=== PATIENT | female | born 1950 | race Caucasian/White ===

== ENCOUNTER 2020-02-25 06:39 | Day surgery (SDC) | payer MEDICARE, OTHER ==
--- OUTSIDE RECORDS SUMMARY | 2019-11-25 15:42 | XMSREPORT | Referral Summary ---
:1950 Author Organization [facility] Address [address] [place] [address] Care Team Providers Name Role Phone Noe Harp MD Primary Care Provider Noe Harp MD Attributed Provider Reason for Referral Transitions of Care (Routine) Status Reason Specialty Diagnoses / Referred By Referred To Procedures Contact Contact New Request Patient Diagnoses Screening for colon cancer Noe Harp Chi Preference D, MD [facility], [address] [place], [place] [address] [address] Phone: [facility] [phone] [place] [address] Fax: [facility] (Routine) Status Reason Specialty Diagnoses / Referred By Referred To Procedures Contact Contact New Request CARDIOLOGY Diagnoses Symptomatic varicose veins of both lower extremities Noe Harp, [facility] [address] [facility] [address] [place] [address] [place], [place] Phone: [phone] Phone: Scheduling Instructions This is an electronic referral. Reason for Visit Reason Comments vericose veins Encounter Details Date Type Department Care Team Description 11/20/[address] [facility] Noe Harp, Symptomatic varicose veins of both lower extremities (Primary Dx); Clinic Family Medicine Screening for colon cancer [address] [facility] [address] [place] [address] [place], [place] [phone] [id number] [phone] Allergies No Known Allergiesdocumented as of this encounter (statuses as of 11/20/2019) Medications Medication Sig Dispensed Refills Start Date End Date Status citalopram (CELEXA) 0 09/14/2019 Active 40 mg tablet oxybutynin Take 15 mg by mouth 0 09/03/2019 Active (DITROPAN-XL) 15 mg 1 time per day SR tablet (24 hr) omeprazole (PRILOSEC) Take 40 mg by mouth 0 09/05/2019 Active 40 mg capsule 1 time a day in the morning Ijfzaup-Mepuoxqmx-Zzs Take by mouth 0 Active c 167-83-8 MG TABS Multiple Take 1 tablet by 0 Active Vitamins-Minerals mouth 1 time per (MULTIVITAMIN day THERAPEUTIC WITH MINERALS) tablet cyanocobalamin Take 2,500 mcg by 0 Active (VITAMIN B-12) 1000 mouth 1 time per mcg tablet day bariatric advantage Take 29 mg by mouth 0 Active iron 29 mg chewable 1 time per day tablet omega-3 fatty acids Take 300 mg by 0 Active (FISH OIL) 1000 mg mouth 1 time per capsule day Magnesium Citrate Take by mouth 0 Active (CITRATE OF MAGNESIA) oral solution polyethylene glycol Take 3 teaspoonsful 225 g 0 10/20/2019 Active (MIRALAX) (17 g) by mouth 1 powderIndications: time per day Epigastric hernia documented as of this encounter (statuses as of 11/20/2019) Active Problems Problem Noted Date PTSD (post-traumatic stress disorder) 02/12/2018 Dysthymia 10/03/2015 Gastroesophageal reflux disease without esophagitis 10/03/2015 Overactive bladder 10/03/2015 Hypertension 07/31/2013 documented as of this encounter (statuses as of 11/20/2019) Immunizations Name Administration Dates Next Due FLU VACCINE HIGH DOSE 65YR+(Fluzone) 06/23/2019, 07/07/2018, 07/01/2017, 06/21/2016, 06/18/2012 Influenza Vaccine 6-35mo 06/19/2013, 06/15/2011 Influenza Vaccine,unspecified 06/23/2019, 07/07/2018, 07/01/2017, 06/21/2016, 06/08/2015, 06/18/2014, 06/18/2012, 06/15/2011, 06/29/2010 Pneumococcal Conj PCV13 02/10/2018, 10/29/2016 Pneumococcal Polysaccharide PPSV23 03/31/2014 TDAP 11/22/2008 Td 03/30/1999 Td(adult)preservative free 03/30/1999 Zoster Live(Zostavax) 12/13/2010 Zoster Recombinant (Shingrix) 12/01/2018, 07/07/2018 documented as of this encounter Social History Tobacco Use Types Packs/Day Years Used Date Never Smoker Smokeless Tobacco: Never Used Sex Assigned at Date Recorded Not on file Job Start Date Occupation Industry Not on file Not on file Not on file Travel History Travel Start Travel End No recent travel history available. documented as of this encounter Last Filed Vital Signs Vital Sign Reading Time Taken Comments Blood Pressure 130/86 11/20/2019 10:40 AM CDT Pulse 82 11/20/2019 10:40 AM CDT Temperature 35.8 C (96.5 F) 11/20/2019 10:40 AM CDT Respiratory Rate - - Oxygen Saturation 99% 11/20/2019 10:40 AM CDT Inhaled Oxygen Concentration - - Weight 83.9 kg (184 lb 14.4 oz) 11/20/2019 10:40 AM CDT Height - - Body Mass Index 30.77 10/20/2019 7:16 AM PERIANESTHESIA NURSE documented in this encounter Functional Status Functional Status Response Date of Assessment Is the person deaf or does he/she have serious difficulty No 10/20/2019 hearing? Is this person blind or does he/she have difficulty No 10/20/2019 seeing even when wearing glasses? Do you have difficulty with walking, balance, climbing No 10/20/2019 stairs, or had a fall in the last 3 months? documented as of this encounter Progress Notes Noe Harp MD - 11/20/2019 10:54 AM CDT Assessment / Plan Symptomatic varicose veins of both lower extremities - CLINIC REFERRAL VASCULAR ONE CHART Screening for colon cancer - CLINIC REFERRAL ENDOSCOPY NON ONE CHART Plan: After some discussion, we will refer to vascular department in [place] with Dr. Britt to discuss her symptomatic varicose vein treatment options. We'll schedule colonoscopy here at [facility] Follow-up when necessary Medications Outpatient Medications Prior to Visit Medication Sig Dispense Refill polyethylene glycol (MIRALAX) powder Take 3 teaspoonsful (17 g) by mouth 1 time per day 225 g 0 citalopram (CELEXA) 40 mg tablet oxybutynin (DITROPAN-XL) 15 mg SR tablet (24 hr) Take 15 mg by mouth 1 time per day omeprazole (PRILOSEC) 40 mg capsule Take 40 mg by mouth 1 time a day in the morning Knnpdtb-Jpgqxbwli-Dwkh 167-83-8 MG TABS Take by mouth Multiple Vitamins-Minerals (MULTIVITAMIN THERAPEUTIC WITH MINERALS) tablet Take 1 tablet by mouth 1 time per day cyanocobalamin (VITAMIN B-12) 1000 mcg tablet Take 2,500 mcg by mouth 1 time per day bariatric advantage iron 29 mg chewable tablet Take 29 mg by mouth 1 time per day omega-3 fatty acids (FISH OIL) 1000 mg capsule Take 300 mg by mouth 1 time per day Magnesium Citrate (CITRATE OF MAGNESIA) oral solution Take by mouth No facility-administered medications prior to visit. Allergies No Known Allergies Problem List Patient Active Problem List Diagnosis Dysthymia Gastroesophageal reflux disease without esophagitis Hypertension Overactive bladder PTSD (post-traumatic stress disorder) History This patient presents today for review of some increasing achiness in her bilateral lower extremities. She has a long-standing history of varicose veins. She states it runs in her family. She has increasing achiness with prolonged standing and with a lot of walking towards the end of theday. She has tried support stockings in the past and doesn't really like how they feel. We also reviewed her screening medical care and she is due for colonoscopy and is interested in getting that done. She declines DEXA scan but would look into the [facility] screening through her insurance company. Physical Exam BP 130/86 Pulse 82 Temp 96.5 F (35.8 C) (Temporal) Wt 83.9 kg (184 lb 14.4 oz) SpO2 99% BMI30.77 kg/m2|| Heartnormal sinus rhythm. No murmur appreciated Lungsclear throughout Extremitiessignificant bilateral varicose veins. No suggestion of redness or warmth or tenderness at this point. Trace edema only in ankles. No calf tenderness documented in this encounter Plan of Treatment Name Type Priority Associated Diagnoses Order Schedule CLINIC REFERRAL Referral Routine Symptomatic varicose Ordered: 11/20/2019 VASCULAR ONE CHART veins of both lower extremities CLINIC REFERRAL Referral Routine Screening for colon Ordered: 11/20/2019 ENDOSCOPY NON ONE CHART cancer documented as of this encounter Implants Implanted Type Area Edi Manager Device Shelf Model / Identifier Expiration Serial / Date Lot Mesh Ventralex St Cir Sm 1.7 N [id number] - [id number] General N/A: BARD DAVOL 04/05/2021 [id number] / Implanted: Qty: 1 on 10/20/2019 by Telly Doll MD at [facility] Implant [id number] / [id number] documented as of this encounter Visit Diagnoses Diagnosis Symptomatic varicose veins of both lower extremities - Primary Varicose veins of lower extremities with other complications Screening for colon cancer Special screening for malignant neoplasms, colon documented in this encounter"
[2020-02-25] MEDS ORDERED: Sodium Chloride 0.9% 1,000 ML IV SCH (07:15)
[2020-02-25] MEDS ORDERED: Midazolam 1 MG/ML 2 ML SDV ONE (07:19)
[2020-02-25] MEDS ORDERED: Propofol 200 MG/20 ML SDV ONE (07:19)
[2020-02-25] MEDS ORDERED: fentaNYL 100 MCG/2 ML SDV ONE (07:19)
--- NOTE | 2020-02-25 13:18 | OR ---
DATE OF PROCEDURE: 02/25/2020 SURGEON: Saurabh Roach MD PROCEDURE: Colonoscopy. FINDINGS: Diverticulosis, moderate, mostly concentrated in sigmoid colon without evidence of diverticulitis or bleeding. COMPLICATIONS: None. CREW FOREMAN: None. PREOPERATIVE DIAGNOSIS: Screening colonoscopy. POSTOPERATIVE DIAGNOSIS: Screening colonoscopy. RISKS: Risks, benefits, alternatives, and limitations including, but not limited to infection, bleeding, and perforation, along with false positives and false negatives were explained to the patient, who wished to proceed. PROCEDURE IN DETAIL: The patient was placed in left lateral decubitus position. Digital rectal exam was performed without abnormality. Scope was introduced and advanced atraumatically to the ileocecal valve. Scope was brought back through the ascending, transverse, descending colon, and retroflexed. The diverticulosis would be described as moderate, mostly in the sigmoid colon with a few tics noted in the ascending and transverse colon without evidence of diverticulitis or bleeding. No abnormalities on retroflexion. The prep was moderately acceptable. No old or new blood. No colitis. No other abnormalities. Saurabh Roach MD /[id number]
== END 2020-02-25 09:53 | disposition home or self-care (01) ==
LOC: JP.SDS 06:39
PROVIDERS: ATTEND Surgery
DX: Z12.11 Encounter for screening for malignant neoplasm of colon (principal); K57.30 Diverticulosis of large intestine without perforation or abscess without bleeding; I10 Essential (primary) hypertension; K21.9 Gastro-esophageal reflux disease without esophagitis; F43.10 Post-traumatic stress disorder, unspecified
CPT/HCPCS: G0121; J2250; J2704; J3010; J7030

== ENCOUNTER 2022-02-01 20:11 | Emergency (ER) | payer MEDICARE, OTHER ==
[2022-02-01] MEDS ORDERED: Ondansetron 4 MG/2 ML SDV IVPUSH ONE (20:20)
[2022-02-01] MEDS ORDERED: Sodium Chloride 0.9% 10 ML Syringe FLUSH PRN (20:20)
[2022-02-01] MEDS ORDERED: Sodium Chloride 0.9% 1,000 ML IV SCH (20:30)
== END 2022-02-01 21:54 | disposition home or self-care (01) ==
LOC: JP.ED 20:11
DX: K91.89 Other postprocedural complications and disorders of digestive system (principal); R11.2 Nausea with vomiting, unspecified; K21.9 Gastro-esophageal reflux disease without esophagitis; Z79.899 Other long term (current) drug therapy
CPT/HCPCS: 36415; 74019; 80053; 83605; 83690; 85025; 96361; 96374; 99282; 99284; J2405; J3490; J7030

== ENCOUNTER 2022-10-12 08:29 | Emergency (ER) | payer MEDICARE ==
[2022-10-12] MEDS ORDERED: Ibuprofen 400 MG Tab PO ONE (11:37)
[2022-10-12] MEDS ORDERED: Acetaminophen 500 MG Tab PO ONE (11:38)
== END 2022-10-12 12:14 | disposition home or self-care (01) ==
LOC: JP.ED 08:29
DX: M25.561 Pain in right knee (principal); M25.361 Other instability, right knee; K21.9 Gastro-esophageal reflux disease without esophagitis; E66.9 Obesity, unspecified; Z68.30 Body mass index [BMI] 30.0-30.9, adult; Z79.899 Other long term (current) drug therapy
CPT/HCPCS: 73562-26-RT; 73562-RT; 99282; 99283; A9270-GY

== ENCOUNTER 2022-11-13 18:28 | Emergency (ER) | payer MEDICARE, OTHER | END 2022-11-13 19:56 | disposition home or self-care (01) | LOC: JP.ED 18:28 | DX: M25.561 Pain in right knee (principal); K21.9 Gastro-esophageal reflux disease without esophagitis; E66.9 Obesity, unspecified; Z68.30 Body mass index [BMI] 30.0-30.9, adult; Z79.899 Other long term (current) drug therapy | CPT/HCPCS: 73562-26-RT; 73562-RT; 99283 ==

== ENCOUNTER 2023-01-14 06:20 | Day surgery (SDC) | payer MEDICARE, OTHER ==
[2023-01-14 06:42] LABS: HEMOGLOBIN 13.6 g/dL (11.2-15.5); MEAN CORPUSCULAR HEMOGLOBIN 29.5 pg (31.6-35.5); MEAN CORPUSCULAR HGB CONC 32.4 g/dL (31.6-35.5); MEAN CORPUSCULAR VOLUME 91.1 fL (81.4-99.0); RED BLOOD CELL COUNT 4.61 M/uL (3.77-5.24); WHITE BLOOD CELL COUNT,WBC 7.4 K/uL (3.2-11.0)
[2023-01-14] MEDS ORDERED: Nozin Nasal Sanitizer NASBOTH ONE (07:00)
[2023-01-14] MEDS ORDERED: Lactated Ringers 1,000 ML IV SCH (07:00)
[2023-01-14 07:03] LABS: A/G RATIO 0.9 (1.2-2.2); ALANINE AMINOTRANSFERASE,ALT 25 U/L (12-78); ALBUMIN 3.3 g/dL (3.4-5.0); ALKALINE PHOSPHATASE 88 U/L (46-116); ASPARTATE AMNIOTRANSFERASE,AST 26 U/L (15-37); BILIRUBIN TOTAL 0.5 mg/dL (0.2-1.0); BLOOD UREA NITROGEN,BUN 18 mg/dL (7-18); CALCIUM 8.9 mg/dL (8.5-10.1); CARBON DIOXIDE,CO2 28 mmol/L (21-32); CHLORIDE,CL 103 mmol/L (100-108); CREATININE 0.9 mg/dL (0.6-1.0); EST CRCL DRUG DOSING (CG) 49.35 mL/min; ESTIMATED GFR 67 mL/min (>60); GLUCOSE RANDOM 99 mg/dL (74-106); PROTEIN TOTAL,TP 7.2 g/dL (6.4-8.2); SODIUM,NA 138 mmol/L (140-148)
[2023-01-14] MEDS ORDERED: Bupivacaine 0.5% 50 ML MDV ONE (07:03)
[2023-01-14] MEDS ORDERED: Clindamycin Phosphate in D5W 900 MG in Premix Bag 1 BAG IV ONE ×2 (08:00)
[2023-01-14] MEDS ORDERED: fentaNYL 250 MCG/5 ML SDV ONE (08:02)
[2023-01-14] MEDS ORDERED: Glycopyrrolate 0.2 MG/ML 5 ML MDV ONE (08:03)
[2023-01-14] MEDS ORDERED: Dexamethasone 4 MG/ML SDV ONE (08:03)
[2023-01-14] MEDS ORDERED: Rocuronium 50 MG/5 ML Vial ONE (08:03)
[2023-01-14] MEDS ORDERED: Propofol 200 MG/20 ML SDV ONE (08:03)
[2023-01-14] MEDS ORDERED: Neostigmine Methylsulfate 1 MG/ML 5 ML Syringe ONE (08:03)
[2023-01-14] MEDS ORDERED: Succinylcholine 200 MG/10 ML MDV ONE (08:03)
[2023-01-14] MEDS ORDERED: Ondansetron 4 MG/2 ML SDV ONE (08:03)
[2023-01-14] MEDS ORDERED: ePHEDrine 50 MG/ML SDV ONE (08:34)
[2023-01-14] MEDS ORDERED: Ketorolac 30 MG/ML SDV ONE (08:43)
[2023-01-14] MEDS ORDERED: Acetaminophen/HYDROcodone 325-5 MG Tab PO PRN (09:55)
== END 2023-01-14 10:35 | disposition home or self-care (01) ==
LOC: JP.SDS 06:20
PROVIDERS: ATTEND Specialist
DX: S83.271A Complex tear of lateral meniscus, current injury, right knee, initial encounter (principal); M17.11 Unilateral primary osteoarthritis, right knee; M24.10 Other articular cartilage disorders, unspecified site; M22.41 Chondromalacia patellae, right knee; K21.9 Gastro-esophageal reflux disease without esophagitis; I10 Essential (primary) hypertension; F32.A Depression, unspecified; F43.10 Post-traumatic stress disorder, unspecified; E66.9 Obesity, unspecified; Z88.1 Allergy status to other antibiotic agents; Z68.30 Body mass index [BMI] 30.0-30.9, adult
CPT/HCPCS: 29881; 36415; 80053; 85027; 93005; A9270; J0330; J1100; J1885; J2405; J2704; J2710; J3010; J3490; J7120

== ENCOUNTER 2023-04-28 17:24 | Emergency (ER) | payer MEDICARE, OTHER ==
[2023-04-28] MEDS ORDERED: Sodium Chloride 0.9% 10 ML Syringe FLUSH PRN (18:01)
[2023-04-28] MEDS ORDERED: Sodium Chloride 0.9% 1,000 ML IV ONE (18:02)
[2023-04-28] MEDS ORDERED: Cyclobenzaprine 10 MG Tab PO ONE (18:06)
[2023-04-28 18:09] LABS: APPEARANCE,URINE CLEAR (CLEAR); BILIRUBIN,URINE NEGATIVE (NEGATIVE); COLOR,URINE YELLOW (YELLOW); GLUCOSE,URINE NEGATIVE (NEGATIVE); KETONES,URINE NEGATIVE (NEGATIVE); LEUKOCYTE ESTERASE,URINE NEGATIVE (NEGATIVE); NITRITE,URINE NEGATIVE (NEGATIVE); OCCULT BLOOD,URINE TRACE-INTACT (NEGATIVE); PH,URINE 5.5 (5.0-8.0); PROTEIN,URINE NEGATIVE (NEGATIVE); UROBILINOGEN,URINE 0.2 EU/dL (0.2-1.0)
[2023-04-28 18:15] LABS: BASOPHILS ABSOLUTE AUTO 0.05 K/uL (0.00-0.10); BASOPHILS PERCENT AUTO 0.6 % (0.1-1.3); EOSINOPHILS ABSOLUTE AUTO 0.33 K/uL (0.00-0.40); EOSINOPHILS PERCENT AUTO 3.9 % (0.0-5.4); HEMATOCRIT 30.8 % (34.3-46.0); HEMOGLOBIN 10.2 g/dL (11.2-15.5); IMMATURE GRAN ABSOLUTE AUTO 0.05 K/uL (0.00-0.23); IMMATURE GRAN PERCENT AUTO 0.6 % (0.0-0.7); LYMPHOCYTES ABSOLUTE AUTO 2.08 K/uL (0.8-3.3); LYMPHOCYTES PERCENT AUTO 24.8 % (11.4-47.7); MEAN CORPUSCULAR HEMOGLOBIN 30.1 pg (31.6-35.5); MEAN CORPUSCULAR HGB CONC 33.1 g/dL (31.6-35.5); MEAN CORPUSCULAR VOLUME 90.9 fL (81.4-99.0); MONOCYTES ABSOLUTE AUTO 0.77 K/uL (0.20-0.90); MONOCYTES PERCENT AUTO 9.2 % (3.3-12.6); NEUTROPHILS ABSOLUTE AUTO 5.11 K/uL (1.0-7.6); NEUTROPHILS PERCENT AUTO 60.9 % (40.0-78.1); PLATELET COUNT,PLT 279 K/uL (130-375); RED BLOOD CELL COUNT 3.39 M/uL (3.77-5.24); WHITE BLOOD CELL COUNT,WBC 8.4 K/uL (3.2-11.0)
[2023-04-28 18:15] LABS: AMORPHOUS SEDIMENT,URINE NOT SEEN; BACTERIA,URINE RARE; EPITHELIAL CELLS,URINE NOT SEEN; MUCUS,URINE NOT SEEN; RBC,URINE 0-5 (0-5); WBC,URINE 0-5 (0-5)
[2023-04-28 18:29] LABS: CALCIUM 8.9 mg/dL (8.5-10.1); CREATININE 0.8 mg/dL (0.6-1.0); EST CRCL DRUG DOSING (CG) 55.52 mL/min; POTASSIUM,K 4.4 mmol/L (3.6-5.2)
[2023-04-28 18:30] LABS: ANION GAP 14.4 mmol/L (5.0-14.0)
[2023-04-28] MEDS ORDERED: Ketorolac 30 MG/ML SDV IVPUSH ONE (18:45)
[2023-04-28] MEDS ORDERED: oxyCODONE 5 MG Tab PO ONE (19:14)
== END 2023-04-28 19:45 | disposition home or self-care (01) ==
LOC: JP.ED 17:24
DX: M62.838 Other muscle spasm (principal); I10 Essential (primary) hypertension; E66.9 Obesity, unspecified; K21.9 Gastro-esophageal reflux disease without esophagitis; Z79.899 Other long term (current) drug therapy; Z88.1 Allergy status to other antibiotic agents; Z68.29 Body mass index [BMI] 29.0-29.9, adult
CPT/HCPCS: 36415; 80048; 81001; 83735; 85025; 96361; 96374; 99284; A9270; J1885; J7030

== ENCOUNTER 2023-08-06 09:17 | Emergency (ER) | payer MEDICARE, OTHER ==
[2023-08-06 10:16] LABS: BASOPHILS ABSOLUTE AUTO 0.04 K/uL (0.00-0.10); BASOPHILS PERCENT AUTO 0.7 % (0.1-1.3); EOSINOPHILS ABSOLUTE AUTO 0.12 K/uL (0.00-0.40); EOSINOPHILS PERCENT AUTO 2.2 % (0.0-5.4); HEMATOCRIT 36.7 % (34.3-46.0); HEMOGLOBIN 11.9 g/dL (11.2-15.5); IMMATURE GRAN PERCENT AUTO 0.2 % (0.0-0.7); LYMPHOCYTES PERCENT AUTO 28.9 % (11.4-47.7); MEAN CORPUSCULAR HEMOGLOBIN 29.5 pg (31.6-35.5); MEAN CORPUSCULAR HGB CONC 32.4 g/dL (31.6-35.5); MEAN CORPUSCULAR VOLUME 90.8 fL (81.4-99.0); MONOCYTES ABSOLUTE AUTO 0.41 K/uL (0.20-0.90); MONOCYTES PERCENT AUTO 7.4 % (3.3-12.6); NEUTROPHILS ABSOLUTE AUTO 3.35 K/uL (1.0-7.6); NEUTROPHILS PERCENT AUTO 60.6 % (40.0-78.1); PLATELET COUNT,PLT 256 K/uL (130-375); RED BLOOD CELL COUNT 4.04 M/uL (3.77-5.24); WHITE BLOOD CELL COUNT,WBC 5.5 K/uL (3.2-11.0)
[2023-08-06 10:18] LABS: IMMATURE GRAN ABSOLUTE AUTO 0.01 K/uL (0.00-0.23)
[2023-08-06 10:36] LABS: A/G RATIO 0.9 (1.2-2.2); ALANINE AMINOTRANSFERASE,ALT 13 U/L (12-78); ALKALINE PHOSPHATASE 81 U/L (46-116); ASPARTATE AMNIOTRANSFERASE,AST 18 U/L (15-37); BILIRUBIN TOTAL 0.3 mg/dL (0.2-1.0); BLOOD UREA NITROGEN,BUN 17 mg/dL (7-18); CALCIUM 8.6 mg/dL (8.5-10.1); CARBON DIOXIDE,CO2 29 mmol/L (21-32); CHLORIDE,CL 102 mmol/L (100-108); CREATININE 0.9 mg/dL (0.6-1.0); EST CRCL DRUG DOSING (CG) 47.36 mL/min; ESTIMATED GFR 67 mL/min (>60); GLUCOSE RANDOM 88 mg/dL (74-106); POTASSIUM,K 5.1 mmol/L (3.6-5.2); PROTEIN TOTAL,TP 6.3 g/dL (6.4-8.2); SODIUM,NA 138 mmol/L (140-148)
[2023-08-06 10:47] LABS: ANION GAP 12.1 mmol/L (5.0-14.0)
[2023-08-06 11:06] LABS: SEDIMENTATION RATE MANUAL 24 mm/hr (0-25)
== END 2023-08-06 12:21 | disposition home or self-care (01) ==
LOC: JP.ED 09:17
DX: M17.12 Unilateral primary osteoarthritis, left knee (principal); I10 Essential (primary) hypertension; K21.9 Gastro-esophageal reflux disease without esophagitis; E03.9 Hypothyroidism, unspecified; E66.9 Obesity, unspecified; Z79.899 Other long term (current) drug therapy; Z88.1 Allergy status to other antibiotic agents; Z68.32 Body mass index [BMI] 32.0-32.9, adult
CPT/HCPCS: 36415; 80053; 83605; 84145; 85025; 85379; 85651; 93970; 93970-26; 99284

== ENCOUNTER 2024-01-30 05:50 | Day surgery (SDC) | payer MEDICARE, OTHER ==
[2024-01-30] MEDS: Sodium Chloride 0.9% 10 ML Syringe FLUSH PRN (06:26)
== END 2024-01-30 08:05 | disposition home or self-care (01) ==
LOC: JP.SDS 05:50
PROVIDERS: ATTEND Ophthalmology
DX: H25.12 Age-related nuclear cataract, left eye (principal); I10 Essential (primary) hypertension; K21.9 Gastro-esophageal reflux disease without esophagitis
CPT/HCPCS: J3490; V2632

== ENCOUNTER 2024-05-18 13:55 | Emergency (ER) | payer MEDICARE, OTHER ==
[2024-05-18 16:20] LABS: BASOPHILS ABSOLUTE AUTO 0.04 K/uL (0.00-0.10); BASOPHILS PERCENT AUTO 0.7 % (0.1-1.3); EOSINOPHILS ABSOLUTE AUTO 0.24 K/uL (0.00-0.40); EOSINOPHILS PERCENT AUTO 3.9 % (0.0-5.4); HEMATOCRIT 35.9 % (34.3-46.0); IMMATURE GRAN PERCENT AUTO 0.2 % (0.0-0.7); LYMPHOCYTES PERCENT AUTO 22.8 % (11.4-47.7); MEAN CORPUSCULAR HEMOGLOBIN 29.8 pg (31.6-35.5); MEAN CORPUSCULAR HGB CONC 33.4 g/dL (31.6-35.5); MEAN CORPUSCULAR VOLUME 89.1 fL (81.4-99.0); MONOCYTES ABSOLUTE AUTO 0.66 K/uL (0.20-0.90); MONOCYTES PERCENT AUTO 10.7 % (3.3-12.6); NEUTROPHILS ABSOLUTE AUTO 3.79 K/uL (1.0-7.6); NEUTROPHILS PERCENT AUTO 61.7 % (40.0-78.1); PLATELET COUNT,PLT 258 K/uL (130-375); RED BLOOD CELL COUNT 4.03 M/uL (3.77-5.24); WHITE BLOOD CELL COUNT,WBC 6.1 K/uL (3.2-11.0)
[2024-05-18 16:21] LABS: IMMATURE GRAN ABSOLUTE AUTO 0.01 K/uL (0.00-0.23)
[2024-05-18 16:51] LABS: C-REACTIVE PROTEIN 6.82 mg/dL (<0.50); CALCIUM 9.4 mg/dL (8.5-10.1); EST CRCL DRUG DOSING (CG) 43.74 mL/min; POTASSIUM,K 4.5 mmol/L (3.6-5.2)
[2024-05-18] MEDS: diphenhydrAMINE 25 MG Cap PO ONE (16:52)
[2024-05-18 16:54] LABS: ANION GAP 14.5 mmol/L (5.0-14.0)
[2024-05-18] MEDS: cefTRIAXone 1 GM, Lidocaine 1% 2.1 ML IM ONE (17:09)
[2024-05-18] MEDS: cefTRIAXone 1 GM in Sodium Chloride 0.9% 50 ML IV ONE (17:30)
== END 2024-05-18 18:38 | disposition home or self-care (01) ==
LOC: JP.ED 13:55
DX: S61.032A Puncture wound without foreign body of left thumb without damage to nail, initial encounter (principal); I10 Essential (primary) hypertension; E78.00 Pure hypercholesterolemia, unspecified; E66.9 Obesity, unspecified; E03.9 Hypothyroidism, unspecified; Z88.8 Allergy status to other drugs, medicaments and biological substances; Z91.048 Other nonmedicinal substance allergy status; Z79.899 Other long term (current) drug therapy; Z68.31 Body mass index [BMI] 31.0-31.9, adult; W55.01XA Bitten by cat, initial encounter
CPT/HCPCS: 36415; 80048; 83605; 85025; 86140; 96365; 99283; A9270; J0696; J3490